=== PATIENT | female | born 1990 ===

== ENCOUNTER 2016-10-21 10:56 | Day surgery (SDC) | payer SELFPAY ==
[2016-10-21] MEDS ORDERED: Iohexol 240 (50 ml) ONE (11:58)
[2016-10-21] MEDS ORDERED: Sodium Chloride 0.9% 1,000 ML IV ONE ×2 (12:01→13:10)
[2016-10-21] MEDS ORDERED: Lactated Ringer's 500 ML IV ONE (12:01)
[2016-10-21 12:10] VITALS: BMI 20.5
[2016-10-21] MEDS ORDERED: Sodium Chloride 0.9% 1,000 ML IV SCH ×2 (12:15)
[2016-10-21] MEDS ORDERED: Midazolam 2 MG/2 ML VIAL ONE (12:15)
[2016-10-21] MEDS ORDERED: Propofol 10 mg/ml Inj (20 ML) ONE (12:16)
[2016-10-21] MEDS ORDERED: Succinylcholine 200 mg/10 ml Inj IV ONE (12:16)
[2016-10-21] MEDS ORDERED: Esmolol 100 mg/10ml Inj IV ONE (12:17)
[2016-10-21] MEDS ORDERED: ePHEDrine 50 mg/ml Inj ONE (12:17)
[2016-10-21] MEDS ORDERED: Triamcinolone Acetonide 40 mg/mL Inj IM ONE (12:25)
--- NOTE | 2016-10-21 13:44 | CP.SDSHP ---
Same Day Surgery H & P - History Proposed Procedure: egd Pre-Op Diagnosis: esophageal stenosis - Previous Medical/Surgical History Previous Surgical History: esophageal dilation. j tube - Allergies Allergies: Allergies No Known Allergies Allergy (Verified 10/21/16 11:41) - Physical Exam General Appearance: nl Vital Signs: Vital Signs 10/21/16 11:58 Temperature 97.9 F Pulse Rate 70 Respiratory 13 Rate Blood Pressure 104/68 O2 Sat by Pulse 100 Oximetry Mental Status: Alert & Oriented x3 Neuro: WNL Heart: WNL Lungs: WNL GI: WNL - Impression Impression: esophageal stenosis Pt. Evaluated Today:Candidate for Anesthesia & Procedure: Yes - Date & Time Date: 10/21/16 Time: 13:44 Short Stay Discharge - Short Stay Discharge Admitting Diagnosis/Reason for Visit: ESOPHAGEAL STEROSIS Disposition: HOME/ ROUTINE
[2016-10-21] MEDS ORDERED: Lactated Ringer's 1,000 ML IV ONE (14:00)
[2016-10-22 19:02] VITALS: BP 154/89; PULSE 73; RESP 16; TEMP 985; O2SAT 99
--- NOTE | 2016-10-27 14:08 | RAD ---
PROCEDURE: Fluoroscopy up to 1 hr. HISTORY: DILATION COMPARISON: None TECHNIQUE: Standard protocol for this study/examination. FINDINGS: Total fluoroscopic time (continuous mode) utilized during the procedure: 39.2 seconds. IMPRESSION: Less than 1 hr fluoroscopic time utilized during performance of the procedure.
== END 2016-10-21 14:00 | disposition home or self-care (01) ==
LOC: H.ENDO 10:56
PROVIDERS: ATTEND Internal Medicine
DX: K22.2 Esophageal obstruction (principal)

== ENCOUNTER 2016-10-26 11:44 | Day surgery (SDC) | payer SELFPAY ==
[2016-10-26] MEDS ORDERED: Lactated Ringer's 500 ML IV ONE (12:10)
[2016-10-26] MEDS ORDERED: Iohexol 240 (50 ml) ONE (12:12)
[2016-10-26 12:17] VITALS: TEMP 97
[2016-10-26] MEDS ORDERED: Midazolam 2 MG/2 ML VIAL ONE (12:29)
[2016-10-26] MEDS ORDERED: Propofol 10 mg/ml Inj (20 ML) ONE (12:30)
[2016-10-26] MEDS ORDERED: Succinylcholine 200 mg/10 ml Inj IV ONE (12:33)
[2016-10-26 13:41] VITALS: O2SAT 100
[2016-10-26 13:52] VITALS: BP 121/91; PULSE 61; RESP 19
--- NOTE | 2016-10-27 16:58 | RAD ---
PROCEDURE: Fluoroscopy up to 1 hr. HISTORY: ESOPHAGUS COMPARISON: None TECHNIQUE: Standard protocol for this study/examination. FINDINGS: Total fluoroscopic time (continuous mode) utilized during the procedure: 33.2 seconds. IMPRESSION: Less than 1 hr fluoroscopic time utilized during performance of the procedure.
== END 2016-10-26 14:34 | disposition home or self-care (01) ==
LOC: H.ENDO 11:44
PROVIDERS: ATTEND Internal Medicine
DX: K22.2 Esophageal obstruction (principal); K20.9 Esophagitis, unspecified; K29.70 Gastritis, unspecified, without bleeding

== ENCOUNTER 2016-11-16 12:05 | Day surgery (SDC) | payer SELFPAY ==
[2016-11-16] MEDS ORDERED: Lactated Ringer's 500 ML IV ONE (12:22)
[2016-11-16 12:29] VITALS: O2SAT 100
[2016-11-16] MEDS ORDERED: Iohexol 240 (50 ml) ONE (12:55)
[2016-11-16] MEDS ORDERED: Midazolam 2 MG/2 ML VIAL ONE (13:50)
[2016-11-16] MEDS ORDERED: Propofol 10 mg/ml Inj (20 ML) ONE (13:51)
--- NOTE | 2016-11-16 15:08 | CP.SDSHP ---
Same Day Surgery H & P - History Proposed Procedure: EGD Pre-Op Diagnosis: Esophageal stenosis - Previous Medical/Surgical History Previous Surgical History: EGD w/stent - Allergies Allergies: Allergies No Known Allergies Allergy (Verified 11/02/16 12:06) - Physical Exam General Appearance: nl Vital Signs: Vital Signs 11/16/16 12:28 Temperature 97.1 F L Pulse Rate 84 Respiratory 17 Rate Blood Pressure 126/73 O2 Sat by Pulse 100 Oximetry Mental Status: Alert & Oriented x3 Neuro: WNL Heart: WNL Lungs: WNL GI: WNL - Impression Impression: EGD with stent removal Pt. Evaluated Today:Candidate for Anesthesia & Procedure: Yes - Date & Time Date: 11/16/16 Time: 15:08 Short Stay Discharge - Short Stay Discharge Admitting Diagnosis/Reason for Visit: K22.2 Disposition: HOME/ ROUTINE
[2016-11-16 15:11] VITALS: TEMP 96.9
--- NOTE | 2016-11-16 15:19 | RAD ---
PROCEDURE: Fluoroscopy up to 1 hr. HISTORY: STENT REMOVAL COMPARISON: None TECHNIQUE: Standard protocol for this study/examination. FINDINGS: Submitted images from the current procedure: 3.0 IMPRESSION: Less than 1 hr fluoroscopic time utilized during performance of the procedure.
[2016-11-16 15:29] VITALS: BP 110/69; PULSE 81; RESP 19
== END 2016-11-16 15:47 | disposition home or self-care (01) ==
LOC: H.ENDO 12:05
PROVIDERS: ATTEND Internal Medicine
DX: K22.8 Other specified diseases of esophagus (principal); K29.70 Gastritis, unspecified, without bleeding; K22.2 Esophageal obstruction; Z46.59 Encounter for fitting and adjustment of other gastrointestinal appliance and device; Z97.8 Presence of other specified devices